=== PATIENT | female | born 1995 | race Caucasian/White ===

== ENCOUNTER 2019-07-17 09:23 | Emergency (ER) | payer BC ==
[~2019-07-17] VITALS: Ht 172.7 cm; Wt 117.9 kg
[~2019-07-17 09:23] MED LIST: BACTRIM DS TAB1 EACH PO; KEFLEX500 MG PO; PREDNISONE20 MG PO; PROVENTIL HFA6.7 GM INH
[2019-07-17] MEDS ORDERED: FAMCICLOVIR250 MG PO (09:53)
== END 2019-07-17 10:03 | disposition home or self-care (01) ==
LOC: ED 09:23
DX: A60.04 Herpesviral vulvovaginitis (principal)
CPT/HCPCS: 99283

== ENCOUNTER 2021-08-20 02:09 | Emergency (ER) | payer BC ==
[~2021-08-20] VITALS: Ht 172.7 cm; Wt 132.0 kg
[~2021-08-20 02:09] MED LIST changes: +FAMCICLOVIR250 MG PO
[2021-08-20] MEDS ORDERED: ZOLOFT50 MG PO (02:27)
== END 2021-08-20 02:54 | disposition home or self-care (01) ==
LOC: ED 02:09
DX: J45.901 Unspecified asthma with (acute) exacerbation (principal); Z79.899 Other long term (current) drug therapy
CPT/HCPCS: 94640; 94664; 99284

== ENCOUNTER 2024-12-08 02:17 | Emergency (ER) | payer OTHER ==
[~2024-12-08] VITALS: Ht 172.7 cm; Wt 105.0 kg
[~2024-12-08 02:17] MED LIST changes: +ZOLOFT50 MG PO
[2024-12-08] MEDS ORDERED: WELLBUTRIN SR100 MG PO (02:26)
[2024-12-08 02:47] LABS: BASOPHILS 0.4 % (0.1-1.2); EOSINOPHILS 0.6 % (0.7-5.8); LYMPHOCYTES 26.4 % (19.3-51.7); MCH 29.9 PG (25.6-32.2); MCHC 33.1 g/dL (32.2-35.5); MCV 90.4 fL (79.4-94.8); MONOCYTES 6.0 % (4.7-12.5); NEUTROPHILS 66.4 % (34.0-71.1); RBC 3.94 M/uL (3.93-5.22)
[2024-12-08 03:05] LABS: ALCOHOL, MEDICAL <3 ng/dL (<3); ALT (SGPT) 32 U/L (14-59); AST (SGOT) 24 U/L (15-37); GLOMERULAR FILTRATION RATE,EST 83 mL/min (>60); PROTEIN, TOTAL 7.2 g/dL (6.4-8.2); TSH, 3RD GENERATION 1.253 uIU/mL (0.358-3.740); UREA NITROGEN 12 mg/dL (7-18)
[2024-12-08] MEDS ORDERED: DIPHTH,PERTUSS(ACELL),TET VAC 0.5 ML SYRINGE IM ONE (04:45)
[2024-12-08 05:45] VITALS: BP 158/94
== END 2024-12-08 06:07 | disposition home or self-care (01) ==
LOC: ED 02:17
PROVIDERS: Family Medicine
DX: F32.A Depression, unspecified (principal); S41.112A Laceration without foreign body of left upper arm, initial encounter; S41.111A Laceration without foreign body of right upper arm, initial encounter; S81.811A Laceration without foreign body, right lower leg, initial encounter; J45.909 Unspecified asthma, uncomplicated; Z79.899 Other long term (current) drug therapy; Z63.0 Problems in relationship with spouse or partner; X78.0XXA Intentional self-harm by sharp glass, initial encounter
CPT/HCPCS: 36415; 80053; 80307; 84443; 84703; 85025; 90471; 90715; 99285-25; G0480